=== PATIENT | female | born 1975 | race American Indian/Alaskan Native ===

== ENCOUNTER 2020-07-12 14:18 | Emergency (ER) | payer SELFPAY ==
--- NOTE | 2020-07-12 16:01 | XRay Report ---
CHEST 1 VIEW 07/12/2020 2:48 PM INDICATION / CLINICAL INFORMATION: Chest Pain. COMPARISON: None available. FINDINGS: SUPPORT DEVICES: None. HEART / MEDIASTINUM: No significant abnormality. LUNGS / PLEURA: No significant pulmonary or pleural abnormality. No pneumothorax. ADDITIONAL FINDINGS: No significant additional findings. IMPRESSION: No acute cardiopulmonary abnormality. Signer Name: Olvin Aburto MD Signed: 07/12/2020 3:57 PM Workstation Name: [id number]
--- NOTE | 2020-07-12 21:52 | Emergency Department Report ---
ED General Adult HPI - General Chief complaint: Chest Pain Stated complaint: CP/NECK/LFT JAW PAIN EXTREME PUI?: Yes Time Seen by Provider: 07/12/20 21:34 Source: patient Mode of arrival: Ambulatory Limitations: No Limitations - History of Present Illness Initial comments: Chief complaint: Left ear pain left jaw pain chest pain HPI: This is a 45-year-old female with history of fibromyalgia who presents with left ear pain left jaw pain chest pain for the past week. She has been evaluated in the past with [facility] neck, ENT and neurologist for the left ear jaw pain. Ultimate diagnosis fibromyalgia. Neurologist has treated her with Cymbalta. Patient developed chest pain 3 to 4 days ago achy discomfort. No association with chest pain cough. Achy mild chest pain. No radiation. Central. No associated shortness of breath vomiting fatigue. Or vomiting. Patient also feels throbbing or swelling under her left jaw under left chin. Ibuprofen provided mild relief of symptoms. -: Gradual, week(s) (1) Location: face, chest Severity scale (0 -10): 5 Quality: aching Consistency: constant Improves with: medication (Ibuprofen 800 mg) Worsens with: none Associated Symptoms: chest pain Treatments Prior to Arrival: other (Ibuprofen 800 mg) - Related Data Previous Rx's Medication Instructions Recorded Last Taken Type Amoxicillin/Potassium Clav 1 each PO BID 7 Days #14 tablet 07/12/20 Unknown Rx [Augmentin 875-125 Tablet] Prednisone [predniSONE 10 mg 10 mg PO .TAPER #1 tab.ds.pk 07/12/20 Unknown Rx (6-Day Pack, 21 Tabs)] Allergies Allergy/AdvReac Type Severity Reaction Status Date / Time No Known Allergies Allergy Unverified 07/12/20 15:06 ED Review of Systems ROS: Stated complaint: CP/NECK/LFT JAW PAIN EXTREME Other details as noted in HPI Comment: All other systems reviewed and negative Constitutional: denies: chills, fever, malaise ENT: ear pain, other (Throbbing sensation under left chin) Respiratory: denies: cough, shortness of breath Cardiovascular: chest pain. denies: palpitations, dyspnea on exertion, orthopnea, edema, syncope Gastrointestinal: denies: abdominal pain, nausea, vomiting Skin: denies: rash, lesions Neurological: denies: headache ED Past Medical Hx - Past Medical History Previous Medical History?: Yes Additional medical history: Fibromyalgia - Surgical History Past Surgical History?: No - Social History Smoking Status: Never Smoker Substance Use Type: None - Medications Home Medications: Home Medications Medication Instructions Recorded Confirmed Last Taken Type Amoxicillin/Potassium Clav 1 each PO BID 7 Days #14 tablet 07/12/20 Unknown Rx [Augmentin 875-125 Tablet] Prednisone [predniSONE 10 mg 10 mg PO .TAPER #1 tab.ds.pk 07/12/20 Unknown Rx (6-Day Pack, 21 Tabs)] ED Physical Exam - General Limitations: No Limitations General appearance: alert, in no apparent distress - Head Head exam: Present: atraumatic, normocephalic - Eye Eye exam: Present: normal appearance - ENT ENT exam: Present: mucous membranes moist, TM's normal bilaterally, normal external ear exam - Neck Neck exam: Present: normal inspection, full ROM - Respiratory Respiratory exam: Present: normal lung sounds bilaterally. Absent: respiratory distress, wheezes, rales, rhonchi, stridor - Cardiovascular Cardiovascular Exam: Present: regular rate, normal rhythm, normal heart sounds. Absent: systolic murmur, diastolic murmur, rubs, gallop - GI/Abdominal GI/Abdominal exam: Present: soft, normal bowel sounds. Absent: distended, tenderness, guarding, rebound - Extremities Exam Extremities exam: Present: normal inspection - Neurological Exam Neurological exam: Present: alert, oriented X3 - Psychiatric Psychiatric exam: Present: normal affect, normal mood - Skin Skin exam: Present: warm, dry, intact, normal color. Absent: rash ED Course Vital Signs 07/12/20 15:06 Temperature 97.9 F Pulse Rate 66 Respiratory 20 Rate Blood Pressure 127/78 O2 Sat by Pulse 99 Oximetry ED Medical Decision Making - EKG Data 07/12/20 21:48 EKG obtained [address] Normal sinus rhythm rate 64 bpm normal axis no ST elevation nonspecific T wave pattern - Radiology Data Radiology results: report reviewed CHEST 1 VIEW 07/12/2020 2:48 PM INDICATION / CLINICAL INFORMATION: Chest Pain. COMPARISON: None available. FINDINGS: SUPPORT DEVICES: None. HEART / MEDIASTINUM: No significant abnormality. LUNGS / PLEURA: No significant pulmonary or pleural abnormality. No pneumothorax. ADDITIONAL FINDINGS: No significant additional findings. IMPRESSION: No acute cardiopulmonary abnorma - Medical Decision Making 1. Recurrent left jaw pain: Differential diagnosis includes trigeminal neuralgia, TMJ syndrome, dental infection. Patient had extensive outpatient work-up by ENT and neurologist. With cervical lymphadenopathy, will treat for possible infection such as lymphadenitis. 2. Chest pain: Atypical for ACS. Normal vital signs. Low suspicion for pulmonary embolism. Heart score 1 PERC negative for PE. No evidence of pneumonia on chest radiograph. EKG does not reveal pericarditis. Viral pleurisy is a concern. I strongly encouraged COVID-19 test. Prescription for Augmentin and prednisone. Recommended home prescription ibuprofen for pain. Critical care attestation.: If time is entered above; I have spent that time in minutes in the direct care of this critically ill patient, excluding procedure time. ED Disposition Clinical Impression: Viral syndrome Disposition: DC-01 TO HOME OR SELFCARE Is pt being admited?: No Does the pt Need Aspirin: No Condition: Stable Instructions: Viral Illness, Adult Prescriptions: Amoxicillin/Potassium Clav [Augmentin 875-125 Tablet] 1 each PO BID 7 Days #14 tablet Prednisone [predniSONE 10 mg (6-Day Pack, 21 Tabs)] 10 mg PO .TAPER #1 tab.ds.pk Referrals: PRIMARY CARE, [Primary Care Provider] - 3-5 Days
[2020-07-12] MEDS ORDERED: predniSONE 20 MG TAB PO ONE (21:53)
[2020-07-12] MEDS ORDERED: ONDANSETRON 4 MG ODT TAB PO ONE (21:53)
[2020-07-12] MEDS ORDERED: AMOXICILLIN/K CLAV 875/125MG TAB PO ONE (21:53)
[2020-07-12 22:32] VITALS: BP 122/65
== END 2020-07-12 22:15 | disposition home or self-care (01) ==
LOC: ED 14:18
DX: B34.9 Viral infection, unspecified (principal); Z79.899 Other long term (current) drug therapy
CPT/HCPCS: 71045; 99283; J7512; 93005; Q0162